=== PATIENT | female | born 2000 | race Caucasian/White ===

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

== ENCOUNTER 2019-03-13 10:17 | Observation (INO) ==
[2019-03-13 11:31] LABS: BILIRUBIN,URINE SMALL (NEG); CLARITY,URINE CLOUDY (CLEAR); COLOR,URINE RED (Y); GLUCOSE, URINE (UA) NEGATIVE (NEG); OCCULT BLOOD,URINE LARGE (NEG); PROTEIN,URINE 30 mg/dl (NEG); URINE SAMPLE TYPE CLEAN CATCH URINE
[2019-03-13 11:32] LABS: BACTERIA,URINE MODERATE; RBC,URINE >100 /hpf; SQUAMOUS EPITHELIAL CELL,UR RARE; WBC,URINE RARE
[2019-03-13] MEDS ORDERED: Lactated Ringers 1,000 ML PRIMARY IV ONE ×2 (11:51→16:10)
[2019-03-13] MEDS ORDERED: oxyCODONE-ACETAMINOPHEN 5-325 TAB PO PRN (11:54)
[2019-03-13] MEDS: Lactated Ringers 1,000 ML PRIMARY IV SCH ×2 (13:18→17:18)
[2019-03-13] MEDS ORDERED: MORPHINE SULFATE 2 MG/1 ML IVP PRN ×3 (14:11→19:31)
[2019-03-13] MEDS ORDERED: ONDANSETRON 4 MG/2 ML VIAL IVP PRN ×2 (16:25→21:13)
[2019-03-13] MEDS ORDERED: Acetaminophen 1000mg Inj 1,000 MG/100 ML VIAL IV ONE (16:26)
[2019-03-13] MEDS ORDERED: TAMSULOSIN 0.4 MG CAPSULE PO SCH (17:00)
[2019-03-13] MEDS ORDERED: cefTRIAXone Inj 1 GM in Sodium Chloride 0.9% 100 ML IV SCH (17:15)
[2019-03-13] MEDS ORDERED: D5-LR 1,000 ML PRIMARY IV SCH (18:15)
[2019-03-13 19:54] LABS: BASOPHILS # (AUTO) 0.02 10*3/UL; BASOPHILS % (AUTO) 0.1 % (0-1); EOSINOPHILS # (AUTO) 0 10*3/UL; EOSINOPHILS % (AUTO) 0 % (0-8); Hematocrit [HCT] 35.8 % (37.0-47.0); Hemoglobin [HGB] 12.8 g/dL (12.0-16.0); LYMPHOCYTES # (AUTO) 0.88 10*3/uL; MEAN CORPUSCULAR HGB CONC 35.8 g/dL (33-37); MEAN CORPUSCULAR VOLUME 88.4 FL (81-99); MEAN PLATELET VOLUME 9.2 FL (7.4-12.2); MONOCYTES # (AUTO) 0.55 10*3/UL (0.3-0.8); MONOCYTES % (AUTO) 3.8 % (5-15); NEUTROPHILS # (AUTO) 12.89 10*3/UL; PLATELET MORPHOLOGY COMMENT NORMAL MORPHOLOGY (NORM); RBC MORPHOLOGY COMMENT NORMAL MORPHOLOGY (NORM); RED BLOOD COUNT 4.05 10^6/uL (4.20-5.40); WBC MORPHOLOGY COMMENT NORMAL MORPHOLOGY (NORM)
[2019-03-13 20:04] LABS: BLOOD UREA NITROGEN 4 mg/dL (7-22); BUN/CREATININE RATIO 5.71 (6-20)
[2019-03-13] MEDS ORDERED: HYDROmorphone 2 MG/1 ML IVP PRN ×2 (21:14→21:19)
[2019-03-13 21:54] VITALS: BP 109/46; RESP 18; TEMP 99.1; O2SAT 98
[2019-03-14] MEDS ORDERED: Acetaminophen 1000mg Inj 1,000 MG/100 ML VIAL IV SCH (00:30)
== END 2019-03-13 22:21 | disposition short-term general hospital (02) ==
LOC: OBIP 10:17 → OBOP 10:17
PROVIDERS: ADMIT Family Medicine; ATTEND Family Medicine

== ENCOUNTER 2019-03-31 15:55 | Inpatient (IN) ==
[2019-03-31] MEDS ORDERED: Sodium Chloride 0.9% 1,000 ML PRIMARY IV ONE (16:23)
[2019-03-31] MEDS: Sodium Chloride 0.9% 1,000 ML PRIMARY IV ONE ×2 (16:45→17:16)
[2019-03-31 16:47] LABS: BILIRUBIN,URINE SMALL (NEG); CLARITY,URINE CLOUDY (CLEAR); COLOR,URINE BROWN (Y); GLUCOSE, URINE (UA) NEGATIVE (NEG); OCCULT BLOOD,URINE LARGE (NEG); PROTEIN,URINE >300 mg/dl (NEG); UROBILINOGEN,URINE 0.2 EU/dL (0.2)
[2019-03-31 16:47] LABS: Hematocrit [HCT] 39.9 % (37.0-47.0); Hemoglobin [HGB] 14.1 g/dL (12.0-16.0); MEAN CORPUSCULAR HGB CONC 35.3 g/dL (33-37); MEAN CORPUSCULAR VOLUME 87.3 FL (81-99); MEAN PLATELET VOLUME 9.2 FL (7.4-12.2); RED BLOOD COUNT 4.57 10^6/uL (4.20-5.40)
[2019-03-31 16:54] LABS: RBC,URINE >100 /hpf; SQUAMOUS EPITHELIAL CELL,UR MANY; URINE SAMPLE TYPE CLEAN CATCH URINE; WBC,URINE 15-20
[2019-03-31 16:55] LABS: BACTERIA,URINE MANY
[2019-03-31 16:57] LABS: BLOOD UREA NITROGEN 5 mg/dL (7-22); SERUM ALBUMIN 3.3 g/dL (3.5-4.8); Uric Acid 3.7 mg/dl (2.5-6.2)
[2019-03-31] MEDS ORDERED: TERBUTALINE SULFATE 1 MG/1 ML SDV ONE (17:15)
[2019-03-31] MEDS ORDERED: TERBUTALINE SULFATE 1 MG/1 ML SDV SUBCUT ONE (17:15)
[2019-03-31 17:43] LABS: BILIRUBIN,URINE NEGATIVE (NEG); CLARITY,URINE CLOUDY (CLEAR); COLOR,URINE BROWN (Y); GLUCOSE, URINE (UA) NEGATIVE (NEG); OCCULT BLOOD,URINE LARGE (NEG); PROTEIN,URINE >300 mg/dl (NEG); UROBILINOGEN,URINE 0.2 EU/dL (0.2)
[2019-03-31 17:53] LABS: RBC,URINE >100 /hpf; RENAL EPITHELIAL CELLS,URINE FEW; SQUAMOUS EPITHELIAL CELL,UR MODERATE; URINE SAMPLE TYPE CATH SPECIMEN; WBC,URINE 40-50
[2019-03-31 17:54] LABS: BACTERIA,URINE MODERATE; URINE CRYSTALS RARE
[2019-03-31] MEDS: NIFEdipine 10 MG CAPSULE PO SCH ×4 (18:21→22:47)
[2019-03-31] MEDS ORDERED: cefTRIAXone Inj 1 GM in Sodium Chloride 0.9% 100 ML IV ONE (19:58)
[2019-03-31] MEDS: HYDROcodone-APAP 5 MG -325 MG TABLET PO PRN ×2 (20:06→20:43)
[2019-03-31] MEDS: Lactated Ringers 1,000 ML PRIMARY IV SCH (20:07)
[2019-04-01] MEDS: NIFEdipine 10 MG CAPSULE PO SCH ×6 (02:50→20:03)
[2019-04-01] MEDS: HYDROcodone-APAP 5 MG -325 MG TABLET PO PRN ×4 (02:54→15:15)
[2019-04-01] MEDS: Lactated Ringers 1,000 ML PRIMARY IV SCH ×3 (04:02→20:02)
[2019-04-01] MEDS ORDERED: cefTRIAXone Inj 1 GM in Sodium Chloride 0.9% 100 ML IV SCH (20:00)
[2019-04-02] MEDS: NIFEdipine 10 MG CAPSULE PO SCH ×6 (00:17→14:42)
[2019-04-02] MEDS: Lactated Ringers 1,000 ML PRIMARY IV SCH (05:15)
[2019-04-02 05:44] VITALS: RESP 18
[2019-04-02 08:43] VITALS: BP 119/74; TEMP 98.6; O2SAT 98
[2019-04-02] MEDS ORDERED: ACETAMINOPHEN 325 MG TABLET PO ONE (10:22)
== END 2019-04-02 15:10 | disposition home or self-care (01) | DRG 832 ==
LOC: OBOP 15:55 → OBIP 15:55
PROVIDERS: ADMIT Family Medicine; ATTEND Family Medicine

== ENCOUNTER 2019-04-28 00:07 | Inpatient (IN) ==
[2019-04-28] MEDS ORDERED: Lidocaine 1% 10 MG/ML - 20 ML VIAL SUBCUT PRN (00:14)
[2019-04-28] MEDS ORDERED: Carboprost Inj 250 MCG/ML AMP IM PRN (00:14)
[2019-04-28] MEDS ORDERED: FAMOTIDINE 20 MG/2 ML VIAL IVP PRN ×3 (00:14→23:03)
[2019-04-28] MEDS ORDERED: Metoclopramide Inj 10 MG/2 ML VIAL IV PRN (00:14)
[2019-04-28] MEDS ORDERED: MISOPROSTOL 200 MCG TABLET RECTAL PRN (00:14)
[2019-04-28] MEDS ORDERED: Naloxone Inj 0.01 MG in Sodium Chloride 0.9% vial 1 ML IVP PRN (00:14)
[2019-04-28] MEDS ORDERED: LIDOCAINE HCL 2 % 10 ML JELLY URO-JECT TOPICAL PRN (00:14)
[2019-04-28] MEDS ORDERED: BUTORPHANOL TARTRATE 2 MG/1 ML VIAL IVP PRN ×2 (00:14→23:03)
[2019-04-28] MEDS ORDERED: LIDOCAINE W/ SODIUM BICARB 0.5 ML SYR SUBD PRN (00:14)
[2019-04-28] MEDS ORDERED: OXYTOCIN 10 UNIT/1 ML IM PRN (00:14)
[2019-04-28] MEDS ORDERED: Misoprostol Tab 100 MCG TAB VAGINAL PRN (00:14)
[2019-04-28] MEDS ORDERED: ONDANSETRON 4 MG/2 ML VIAL IVP PRN ×2 (00:14→23:03)
[2019-04-28] MEDS ORDERED: NALOXONE 0.4 MG/1 ML VIAL IVP PRN (00:14)
[2019-04-28] MEDS ORDERED: Zolpidem Tab 5 MG TAB PO PRN (00:14)
[2019-04-28] MEDS ORDERED: TERBUTALINE SULFATE 1 MG/1 ML SDV SUBCUT PRN (00:14)
[2019-04-28] MEDS ORDERED: CALCIUM CARBONATE 500 MG (TUMS) CHEWABLE TABLET PO PRN ×2 (00:14→23:03)
[2019-04-28] MEDS ORDERED: Nalbuphine Inj 20 MG/ML Ampule IVP PRN ×2 (00:14→23:03)
[2019-04-28] MEDS ORDERED: CefOXitin Inj 2 GM in Sodium Chloride 0.9% 100 ML IV PRN (00:14)
[2019-04-28] MEDS ORDERED: Phenylephrine Inj 50 MCG in Sodium Chloride 0.9% vial 0.5 ML IVP PRN (00:14)
[2019-04-28] MEDS ORDERED: diphenhydrAMINE 50 MG/1 ML VIAL IVP PRN (00:14)
[2019-04-28] MEDS ORDERED: CITRIC ACID/SODIUM CITRATE 30 ML CUP PO PRN (00:14)
[2019-04-28] MEDS ORDERED: METHYLERGONOVINE MALEATE 0.2 MG/1 ML VIAL IM PRN (00:14)
[2019-04-28] MEDS ORDERED: Oxytocin 20 Units + LR 20 UNIT/1,000 ML BAG IV SCH ×3 (00:15→23:03)
[2019-04-28 01:22] LABS: Hematocrit [HCT] 40.3 % (37.0-47.0); MEAN CORPUSCULAR HGB CONC 34.7 g/dL (33-37); MEAN CORPUSCULAR VOLUME 88.2 FL (81-99); MEAN PLATELET VOLUME 9.5 FL (7.4-12.2); RED BLOOD COUNT 4.57 10^6/uL (4.20-5.40)
[2019-04-28 01:24] LABS: BILIRUBIN,URINE NEGATIVE (NEG); CLARITY,URINE CLOUDY (CLEAR); COLOR,URINE YELLOW (Y); GLUCOSE, URINE (UA) NEGATIVE (NEG); OCCULT BLOOD,URINE LARGE (NEG); PH,URINE 6.5 (5.0-8.5); PROTEIN,URINE 100 mg/dl (NEG); UROBILINOGEN,URINE 0.2 EU/dL (0.2)
[2019-04-28 01:27] LABS: RBC,URINE >100 /hpf; SQUAMOUS EPITHELIAL CELL,UR FEW; URINE SAMPLE TYPE CLEAN CATCH URINE; WBC,URINE 80-100
[2019-04-28 01:28] LABS: BACTERIA,URINE MODERATE
[2019-04-28] MEDS: Lactated Ringers-OB Dept 1,000 ML PRIMARY IV SCH ×4 (01:39→22:41)
[2019-04-28] MEDS: fentaNYL Inj 100 MCG/2 ML VIAL IV PRN ×2 (07:21→10:14)
[2019-04-28 07:45] LABS: BLOOD UREA NITROGEN 8 mg/dL (7-22); SERUM ALBUMIN 3.4 g/dL (3.5-4.8); Uric Acid 4.3 mg/dl (2.5-6.2)
[2019-04-28] MEDS ORDERED: cefTRIAXone Inj 1 GM in Sodium Chloride 0.9% 100 ML IV SCH (08:45)
[2019-04-28] MEDS ORDERED: Fent/Bupiv 2mcg/0.0625% Epid 250 ML ONE ×2 (10:40→21:56)
[2019-04-28] MEDS ORDERED: fentaNYL 2 MCG/BUPIVACAINE 0.0625%/NS 0.9% 250 ML BAG EPIDURAL SCH ×2 (15:00→22:15)
[2019-04-28] MEDS ORDERED: OXYTOCIN 10 UNIT/1 ML ONE (20:34)
[2019-04-28] MEDS ORDERED: LIDOCAINE MPF 2% - 5 ML (20 MG/1 ML) ONE ×2 (20:35→21:27)
[2019-04-28] MEDS ORDERED: fentaNYL Inj 100 MCG/2 ML VIAL ONE (21:10)
[2019-04-28] MEDS ORDERED: Lactated Ringers 1,000 ML PRIMARY IV ONE ×2 (21:10→21:12)
[2019-04-28] MEDS ORDERED: BUPIVACAINE 0.25% W/ EPI - 10 ML VIAL ONE (21:19)
[2019-04-28] MEDS ORDERED: KETAMINE 100 MG/1 ML - 5 ML ONE (21:29)
[2019-04-28] MEDS ORDERED: diphenhydrAMINE 25 MG CAPSULE PO PRN (23:03)
[2019-04-28] MEDS ORDERED: D5-LR 1,000 ML PRIMARY IV SCH (23:03)
[2019-04-28] MEDS ORDERED: LANOLIN HPA 40 GM TUBE TOPICAL PRN (23:03)
[2019-04-28] MEDS ORDERED: DIPH,PERTUSS,TET(ADACEL) VAC/PF 0.5 ML (Tdap) IM ONE (23:03)
[2019-04-28] MEDS ORDERED: diphenhydrAMINE 50 MG/1 ML VIAL IV PRN (23:03)
[2019-04-28] MEDS ORDERED: Naloxone Inj 0.01 MG, Sodium Chloride 0.9% vial 1 ML IVP PRN ×2 (23:03)
[2019-04-28] MEDS: KETOROLAC 15 MG/1 ML VIAL IVP SCH (23:31)
[2019-04-29] MEDS: oxyCODONE-ACETAMINOPHEN 5-325 TAB PO PRN ×6 (00:29→23:19)
[2019-04-29] MEDS: HYDROmorphone 2 MG/1 ML IV PRN ×4 (00:46→23:47)
[2019-04-29] MEDS: KETOROLAC 15 MG/1 ML VIAL IVP SCH (05:04)
[2019-04-29 05:05] LABS: Hematocrit [HCT] 28.6 % (37.0-47.0); MEAN CORPUSCULAR VOLUME 90.2 FL (81-99); MEAN PLATELET VOLUME 9.3 FL (7.4-12.2); RED BLOOD COUNT 3.17 10^6/uL (4.20-5.40)
[2019-04-29 05:18] LABS: BLOOD UREA NITROGEN 5 mg/dL (7-22); SERUM ALBUMIN 2.2 g/dL (3.5-4.8); Uric Acid 4.9 mg/dl (2.5-6.2)
[2019-04-29] MEDS: Prenatal Multivitamin Tab 1 TAB TAB PO SCH (10:18)
[2019-04-29] MEDS: Senna/Docusate Tab 1 TAB TAB PO SCH ×2 (10:18→20:57)
[2019-04-29] MEDS ORDERED: cefTRIAXone Inj 1 GM in Sodium Chloride 0.9% 100 ML IV ONE (12:49)
[2019-04-29] MEDS: FERROUS GLUCONATE 324 MG TABLET PO SCH (20:57)
[2019-04-30] MEDS ORDERED: IBUPROFEN 800 MG TABLET PO SCH ×2 (04:47→14:00)
[2019-04-30] MEDS: oxyCODONE-ACETAMINOPHEN 5-325 TAB PO PRN ×3 (05:19→13:18)
[2019-04-30 05:32] LABS: Hematocrit [HCT] 27.1 % (37.0-47.0); Hemoglobin [HGB] 9.1 g/dL (12.0-16.0); MEAN CORPUSCULAR HGB CONC 33.6 g/dL (33-37); MEAN CORPUSCULAR VOLUME 92.5 FL (81-99); MEAN PLATELET VOLUME 9.1 FL (7.4-12.2); RED BLOOD COUNT 2.93 10^6/uL (4.20-5.40)
[2019-04-30 05:35] LABS: BLOOD UREA NITROGEN 5 mg/dL (7-22); SERUM ALBUMIN 2.2 g/dL (3.5-4.8); Uric Acid 5.7 mg/dl (2.5-6.2)
[2019-04-30] MEDS: KETOROLAC 15 MG/1 ML VIAL IVP SCH (06:54)
[2019-04-30] MEDS: FERROUS GLUCONATE 324 MG TABLET PO SCH ×2 (07:30→09:25)
[2019-04-30 08:59] VITALS: RESP 18
[2019-04-30] MEDS: Prenatal Multivitamin Tab 1 TAB TAB PO SCH (09:26)
[2019-04-30] MEDS: Senna/Docusate Tab 1 TAB TAB PO SCH (09:26)
[2019-04-30] MEDS ORDERED: FERROUS GLUCONATE 324 MG TABLET PO ONE (14:00)
[2019-04-30] MEDS ORDERED: oxyCODONE-ACETAMINOPHEN 5-325 TAB PO SCH (14:00)
[2019-04-30 14:20] VITALS: BP 118/68; TEMP 98.4; O2SAT 98
== END 2019-04-30 15:05 | disposition home or self-care (01) | DRG 787 ==
LOC: OBOP 00:07 → OBIP 00:22
PROVIDERS: ADMIT Family Medicine; ATTEND Family Medicine